=== PATIENT | male | born 1960 | race Caucasian/White ===

== ENCOUNTER 2020-08-13 22:23 | Observation (INO) | payer OTHER, SELFPAY ==
[2020-08-13 22:24] VITALS: BP 148/90; PULSE 94; RESP 18; TEMP 36.4; O2SAT 97; BMI 27.3
--- NOTE | 2020-08-13 22:37 | ED.VISSUMM ---
- ER Visit Summary Date of Service: 08/13/20 Chief Complaint: Abdominal pain History of Present Illness: The patient is a 60 M who presents with abdominal pain that began today. Patient states the pain is sharp. Patient states the pain is over the lower abdomen. Patient states the pain has been waxing and waning throughout the day. Patient states nothing makes it better or worse. Patient admits to some nausea and vomiting. Patient had 2 episodes of emesis today. Patient states his emesis is stomach contents. Patient denies any hematemesis or coffee-ground emesis. Patient admits to some loose stools. Patient denies any melena or hematochezia. Patient admits to some dysuria but denies any hematuria. Physical Examination: Vital signs are stable. Patient is afebrile. Patient is in no acute distress. Oral mucosa is pink and moist. Neck is supple. Trachea is midline. There is no JVD. Heart was regular rate and rhythm. Lungs are clear and equal bilaterally. Abdomen is soft. Bowel sounds are normal. There is mild lower abdominal tenderness. There is no rebound or guarding noted. Cranial nerves II through XII are intact. There are no focal motor or sensory deficits noted. Test Results: CBC shows a mild leukocytosis of 13.2. Hemoglobin was 17.3. Comprehensive metabolic profile showed a slightly elevated bilirubin of 2.4. Glucose was slightly elevated at 169. Urinalysis does not show any evidence of urinary tract infection. CT scan of the abdomen and pelvis was obtained. There is dilated fluid-filled appendix with periappendiceal fat stranding changes. These were interpreted by the radiologist and reviewed by myself. Emergency Department Course and Treatment: Patient was given morphine and Zofran initially. Patient was given IV fluids. Patient was given a repeat dose of morphine. Patient was advised of his findings. Case was discussed with Dr. Kapoor. She will admit the patient to her service. Patient understood and was agreeable with the plan. All questions were answered. Disposition: Admit to hospital Impression: Acute appendicitis This note was generated with [employer] dictation software. It may contain incorrect words, spelling, and punctuation that were not noted in review of the chart prior to signing ED Disposition - Plan for ED Patient: Disposition: Acute Care Hospital [facility] Diagnosis: Acute appendicitis Referrals: NOT,DEFINED [NON-STAFF] -
[2020-08-13 22:45] LABS: Absolute Lymphocyte Count 0.97 X10^3/uL (0.83-4.51); Absolute Neutrophil Count 11.1 X10^3/uL (2.0-7.7); Basophil# 0.01 X10^3/uL; Basophil% 0.1 % (0-1); Eosinophil# 0.01 X10^3/uL; Eosinophils% 0.1 % (0-5); Hematocrit 51.1 % (40-54); Hemoglobin 17.3 g/dL (13.0-16.5); Lymphocyte # 0.97 X10^3/ul (4.0); Lymphocyte % 7.4 % (19-41); Mean Corp Hgb Conc 33.9 g/dL (32-36); Mean Corpuscular Hgb 31.6 pg (27.0-32.0); Mean Corpuscular Volume 93.2 fL (80-94); Mean Platelet Vol. 8.7 fl (6.2-12.0); Monocyte# 0.98 X10^3/uL; Monocyte% 7.5 % (0-10); NRBC Flagged by Analyzer 0 % (0-5); Neutrophil # 11.13 X10^3/uL (2.7-7.7); Neutrophil % 84.5 % (47-70); Platelet Count 352 K/mm3 (150-450); RBC Distribution Width CV 12.9 % (11.6-14.6); RBC Distribution Width SD 43.8 fl (35.1-43.9); Red Blood Count 5.48 M/mm3 (4.6-6.2); White Blood Count 13.2 K/mm3 (4.4-11.0)
[2020-08-13] MEDS: 0.9% Normal Saline 1,000 ML 1000 ML IV (22:48)
[2020-08-13] MEDS: Morphine 4 MG/ML Syringe IV (22:48)
[2020-08-13] MEDS: Ondansetron 4 MG/2 ML Vial IV (22:48)
[2020-08-13 23:06] LABS: ALB/GLOB Ratio 0.9 RATIO (0.9-2.4); AST(SGOT) 18 U/L (15-37); Alanine Aminotransfer ALT/SGPT 30 U/L (16-61); Albumin, Serum 4.1 g/dL (3.2-5.0); Alkaline Phosphatase 78 U/L (45-117); Anion Gap 7 (5-15); BUN 14 mg/dL (7-18); BUN/Creat Ratio 12.6 RATIO (10-20); Calcium,Total 9.7 mg/dL (8.5-10.1); Chloride 103 mmol/L (98-107); Creatinine, Serum 1.11 mg/dL (0.70-1.30); EST Glomerular Filtration Rate 72 mL/min (>60); Est Glom Filt Rate - Afr Amer 87 mL/min (>60); Estimated Creatinine Clearance 69.32 ml/min; Globulin 4.4 g/dL (2.2-4.2); Glucose 169 mg/dL (74-106); Lipase 84 U/L (73-393); Protein, Total 8.5 g/dL (6.4-8.2); Sodium Level 136 mmol/L (136-145)
[2020-08-13 23:39] LABS: Squamous Epithelial Cells - UA 0 SEEN /hpf (0-5)
[2020-08-13 23:44] LABS: Color, Urine Yellow (Yellow); Glucose, Dipstick Normal (Normal); Ketone-Dipstick 50 mg/dl (Negative); Leukocyte Esterase-Dipstick Negative /ul (Negative); Nitrite-Dipstick Negative (Negative); Occult Blood-Urine 10 /ul (Negative); Protein-Dipstick 30 mg/dl (Negative); Specific Gravity, Urine 1.025 (1.002-1.030); Urine Bilirubin Dipstick Negative (Negative); Urine Clarity Clear (Clear); Urine Urobilinogen Normal (Normal)
[2020-08-14] VITALS (12 sets, daily range): BP systolic 108–157; BP diastolic 51–81; PULSE 80–102; RESP 16–18; TEMP 36.4–37.7; O2SAT 92–97; BMI 28.5; BMI 28.6
--- NOTE | 2020-08-14 | APP_PTH ---
PATIENT: ZIYAD GAMA LOC: MS3 U#:[id number] AGE/SX: 60/M [place] [facility] [place]: Dr. Natalie Kapoor MD : 1960 BED: 1 DIS: 08/15/2020 SPEC #: [id number] RECD: 08/14/20 10:31 STATUS: ESME RESherie #: [id number] GRACIELA: 08/14/20 00:[address]: Natalie Kapoor DEPT: SURGICAL PATHOLOGY RECD BY: Pranay Ryan ENTERED: 08/15/20 08:13 SP TYPE: APPENDIX OT DR: Rosetta Primary Care Phys Tissues: Appendix, NOS Procedures: Surgery Specimen Level III HEADER OPERATION: Laparoscopic appendectomy PRE-OP DIAGNOSIS: Acute appendicitis TISSUE SUBMITTED: Appendix MICROSCOPIC DIAGNOSIS Appendix, appendectomy: Acute necrotizing appendicitis. Acute serositis. AM:kriss 08/16/20 MICROSCOPIC DESCRIPTION Slides are reviewed. GROSS DESCRIPTION Received in fixative is one container labeled with the patient's name and designated appendix. The specimen consists of an appendix measuring 5.5 cm in length and up to 0.7 cm in diameter. The attached periappendiceal adipose tissue measures up to 1.5 cm in width. The distal portion of the appendix shows a focal area suspicious for rupture. The lumen is filled with hemorrhagic material. No fecalith is identified. Slubber Operator sections are submitted in two cassettes. / JOSE M:kriss 08/15/20 TC:2 CPT: 91321
[2020-08-14 00:02] LABS: Mucous, Urine 2+ /hpf (<or=2+); White Blood Cells 0-5 SEEN /hpf (0-5)
[2020-08-14 00:03] LABS: Bacteria 1+ /hpf (None Seen); Red Blood Cells-Urine 0-5 SEEN /hpf (0-5)
[2020-08-14 00:04] LABS: Hyaline Cast 0-5 SEEN /lpf (0-5)
--- NOTE | 2020-08-14 01:15 | CT_ITS ---
STUDY: CT ABDOMEN AND PELVIS WITH CONTRAST REASON FOR EXAM: Male, 60 years old. LOW ABDOMINAL PAIN WITH VOMITING RADIATION DOSAGE (If Supplied By Facility): CTDIvol = ( 9.87 ) mGy, DLP = ( 995.35 ) mGycm TECHNIQUE: Transaxial images were obtained from the dome of the diaphragm to the symphysis pubis with oral contrast. Oral and amp; IV Gastrografin and amp; 100mL Isovue-370 was administered. Sagittal and coronal images were reconstructed. Individualized dose optimization techniques were used for this CT. COMPARISON: None. FINDINGS: The visualized lung bases demonstrate probable bibasilar lung atelectasis.. The visualized portions of the heart are within normal limits. Normal liver. Normal gallbladder and extrahepatic biliary system. Normal spleen. Normal pancreas. Normal bilateral adrenal glands. Normal right kidney. Normal left kidney. Normal visualized stomach. Normal small intestine. Normal colon. The appendix is visualized and is dilated with periappendiceal fat stranding. Normal abdominal aorta. Normal inferior vena cava. Normal retroperitoneum. Normal urinary bladder. Normal abdominal wall. There is chronic right L5 pars defect. Degenerative disc changes at L5-S1. CT/Abdomen/Pelvis WITH Contrast IMPRESSION: Dilated fluid-filled appendix with periappendiceal fat stranding changes. The appendix measures up to 1.3 cm in diameter. Findings consistent with acute appendicitis. Questionable focus of microperforation with small gas density which appears extraluminal, series 2 image 88. No organized fluid collections. Electronically Signed: Wilbertshelbydaysi Calderón, at 1:40 EDT Tel , Service support ,
[2020-08-14] MEDS: Morphine 4 MG/ML Syringe IV (02:04)
--- NOTE | 2020-08-14 02:06 | ED.RN ---
CALLED AND LET ITA KNOW THE STATUS AND THAT PT WAS GOING TO THE FLOOR AND WHAT ROOM HE WAS GOING TO.
[2020-08-14] MEDS: 0.9% Saline Lock 10 ML Syringe IV (04:24)
[2020-08-14] MEDS: Lactated Ringers 1,000 ML 100 ML IV ×4 (04:24→22:40)
--- NOTE | 2020-08-14 07:31 | PCM.HP.BLA ---
History and Physical Date of Admission: 08/14/20 Chief Complaint: abdominal pain History of Present Illness: 60 y/o WM presents with abdominal pain. He notes sudden onset of sharp pain over the lower abdomen beginning yesterday morning. Has had nausea and emesis. Evaluation at [facility] ED - WBC 13.2k with left shift of differential, afebrile CT scan - IMPRESSION: Dilated fluid-filled appendix with periappendiceal fat stranding changes. The appendix measures up to 1.3 cm in diameter. Findings consistent with acute appendicitis. Questionable focus of microperforation with small gas density which appears extraluminal, series 2 image 88. No organized fluid collections. Past Medical History: denies major medical illnesses Past Surgical History: denies Medications: denies taking chronic medications Allergies: Has no known drug allergies Social history: TOB use denies Review of Systems: General - denies fevers, denies weight loss, denies anorexia Cardiovascular denies chest pain, denies history of heart attack Pulmonary denies shortness of breath, denies coughing up blood Gastrointestinal as per HPI, denies blood in stools, denies swallowing problems Neurological denies numbness/weakness of extremities, denies seizures, denies history of stroke Genitourinary denies burning with urination, denies blood in urine Hematological denies spontaneous/prolonged bleeding Skin denies open non healing wounds Musculoskeletal denies history of fractures Endocrine denies diabetes, denies thyroid prblems Psychological denies hallucinations Physical examination: Vital signs Temp 97.5F BP 157/63 HR 102 RR 18 General WD/WN WM in no apparent distress, alert and oriented, not septic appearing HEENT Normocephalic. EOM intact with sclera clear. Neck is supple with no jugular venous distention noted. Trachea is midline. No masses noted. Lungs normal breath sounds. No rales/rhonchi/wheezing noted. No labored breathing noted, such as retractions. No cough heard. Heart normal heart sounds, regular Abdomen soft but tender in the right lower quadrant of the abdomen with rebound tenderness Extremities no calf tenderness noted. No pitting edema noted. Genitourinary/Rectal deferred Skin normal skin integrity. Neurological non fcal. Psychological normal affect, patient is calm and appropriate Impression: appendicitis - possible perforation Discussion/Plan: I have discussed the above with the patient. I have offered the patient the procedure of laparoscopic appendectomy. I have explained the procedure to the patient. I have counseled the patient as to the risks of the procedure, including but not limited to: infection, bleeding, injury to any blood vessels/nerves, scar tissue, injury to any intrabdominal organs, injury to kidney/ureters, injury to bowel/bladder,intraabdominal abscess/bleeding, hernias at incisional sites, wound infections, possible open procedure, complications of anesthesia, postoperative pneumonia/cardiac problems/blood clots etc. the patient understands. The patient was offered a surgery/procedure. The provider and patient have discussed in detail the risk of exposure to and/or potential harm posed by the COVID-19 virus with having a surgery/procedure at this time versus the risk of delaying the surgery/procedure. It is not possible to know either the risk of delaying the surgery or procedure or chance of getting an infection with perfect accuracy, but a joint decision was made between the patient and the provider to proceed at this time with the scheduled surgery/procedure. He wishes to proceed. I have answered all questions to the patient?s satisfaction and the patient has no further questions.
[2020-08-14] MEDS: Bupiv/Epi 0.25% 30 ML Vial (09:55)
--- NOTE | 2020-08-14 10:08 | OP.PCM_ITS ---
Report of Operation Date of Procedure: 08/14/20 Pre-Operative Diagnosis: acute appendicitis Post-Operative Diagnosis: acute perforated appendicitis with localized fecal peritonitis Surgery/Procedure Performed:: laparoscopic appendectomy Description of Surgical Findings:: perforated appendicitis with fecal peritonitis Type of Anesthesia:: General Anesthesiologist: Junie Denise Specimen's removed: appendix Estimated Blood Loss (mL): < 10 ml Fluids Replaced: 1000 ml RL Description of Procedure: After informed consent was obtained, the patient was brought into the Operating Room. Appropriate time out protocol was followed. The patient was placed in the supine position on the operating table. The patient was then placed under general anesthesia by the anesthesia provider. The patient?s abdomen was then prepped with a sterile surgical skin preparation and sterile surgical drapes were placed. The infraumbilical skin fold was grasped with penetrating towel clamps and the skin and subcutaneous tissues were infiltrated with 0.25% marcaine with epinephrine. A incision was then made with a 15 blade scalpel. A Veress needle was then inserted into the intraabdominal cavity and checked to be in the proper position with a normal saline drop test. A CO2 pneumoperitoneum was then created. Once this was achieved, the Veress needle was removed and an 11 mm trocar was placed in its stead. A 10 mm laparoscope was then inserted into the trocar. Careful examination of the intraabdominal contents was then done. There was no evidence of injury to any internal organs from placement of the Veress needle or the trocar. Under direct visualization, a 12mm suprapubic trocar and a 5mm left lower quadrant trocar was then placed into the intraabdominal cavity. The skin and subcutaneous tissues at these sites were first infiltrated with 0.25% marcaine with epinephrine. Attention was then directed to the right lower quadrant. The appendix was not initially visualized. There was dense inflammation in the area. Dissection was done bluntly to identify for the appendix. The inflamed omentum was taken down that was inflamed adherent to the area of the appendix. After some time with blunt dissection to separate out the tissues, the base of the appendix was visualized. The mesentery around the base had a window created by using the Harmonic scalpel. The linear gastrointestinal stapling device was then brought in via the 12 mm suprapubic port. The stapling device was fired, thus stapling across the base of the appendix and transecting it simultaneously. The appendiceal tip could not be visualized. It was surrounded by inflammatory tissue, however fecal contents were noted surrounding this area. The mesentery of the appendix was using the Harmonic scalpel and hemostasis was controlled with the Harmonic scalpel. The appendiceal mass was also densely a dherent to the right lower abdominal wall. Once it was freed from the surrounding tissues, which took some time, the appendiceal mass was then placed in an Endobag and brought out via the suprapubic trocar. There was cloudy/purulent peritoneal fluid noted. Cultures were taken of this. The pelvic cavity was vigorously irrigated with normal saline and all irrigant was aspirated out. The appendiceal stump was carefully examined. There was no evidence of any active bleeding or fecal leakage from the stump. The surrounding tissues were also examined and there was no evidence of any active bleeding or fecal/bile leakage. A 15 Fr passive drain was placed in the intraabdominal cavity, directed to the pelvis but looped in the right lower quadrant and brought out via the suprapubic trocar site. The intraabdominal cavity was examined and there was no evidence of any further inflammation or tissue abnormality. The CO2 pneumoperitoneum was released and all trocars were removed intact. The suprapubic fascia was reapproximated with a figure-of-8 vicryl suture carefully around the drain. The catheter drain was sutured to the skin using nylon suture. The periumbilical fascia was reapproximated using a figure of 8 vicryl suture. All skin incisions were reapproximated with monocryl suture. Cavilon and steristrips were applied to reinforce skin closure and proper sterile dressings were placed. Sponge, needle, and instrument count were verified and correct at the time of skin closure. The patient was then extubated and brought to the Recovery Room in stable condition. - Complications none noted - Admit VTE Documentation VTE Present on Admission: Yes VTE Mechan Device Prophylaxis: SCD's
[2020-08-14] MEDS: Ibuprofen 600 MG Tablet PO (18:30)
[2020-08-15 01:50] VITALS: BP 111/67; PULSE 61; RESP 16; TEMP 37.1; O2SAT 94
[2020-08-15] MEDS: Ibuprofen 600 MG Tablet PO (05:24)
--- NOTE | 2020-08-15 07:31 | DCINST_ITS ---
Discharge Diet: No Restrictions - drink plenty of fluids, avoid carbonated beverages for a couple of days as this may make you feel bloated and thus uncomfortable after abdominal surgery Discharge Activity: Return to Normal Activity, May not drive while taking narcotic pain medications. Lifting Restrictions: no lifting greater than 10 pounds for 2 weeks Call your doctor if your incision/area has: Continuous Slow Oozing, Foul Smelling Discharge Call your doctor if you observe: Fever of 101 or Higher Additional Instructions: Recommended pain control regimen - May take 600 mg ibuprofen (Motrin) and then in 3-4 hours, may take 650 mg acetaminophen (Tylenol), then in 3-4 hours may take 600 mg ibuprofen, then in 3- 4 hours may take 650 mg acetaminophen and so on for 2-3 days May take narcotic pain medication for pain that is not controlled by above and at night for comfort through the night Leave dressings in place Sponge bathe only Empty bulb drain as instructed and reconstitute suction at least once a day Please take your temperature once a day and record this Medications to take at Discharge Amoxicillin/Potassium Clav [Augmentin 875-125 Tablet] 1 ea PO BID 7 Days #14 tab 08/15/20 Hydrocodone Bitart/Apap 5-325 [[place] 5MG-325MG] 1 tab PO Q8H PRN PRN 5 Days #15 tab 08/15/20 Allergies/Adverse Reactions: Allergies No Known Allergies Allergy (Verified 08/13/20 22:26) The following prescriptions were given: Amoxicillin/Potassium Clav [Augmentin 875-125 Tablet] 1 ea PO BID 7 Days #14 tab Transmission Status: Pending to [id number] Hydrocodone Bitart/Apap 5-325 [[place] 5MG-325MG] 1 tab PO Q8H PRN PRN 5 Days #15 tab PRN Reason: Pain Score 4-10 Transmission Status: Sent to [id number] Primary Care Physician: NOT,DEFINED [NON-STAFF] - Test Results: Test results from this visit will be discussed in further detail at your follow- up appointment, if applicable. Please Follow Up With: Natalie Kapoor MD - call When: to be seen on August 19, please call for time, thank you
[2020-08-15 09:20] VITALS: BP 122/70; PULSE 76; RESP 18; TEMP 36.7; O2SAT 93
--- NOTE | 2020-08-15 10:10 | CASEMGMT ---
RN ELSY Face to Face with patient for initial transition planning/care coordination assessment. RN CM introduced self and role at [facility]. Patient sitting in chair, alert and oriented. Patient willing to participate in assessment and is able to answer all questions appropriately. Care providers, pharmacy, and demographics verified. Patient wishes to discharge home, denies need for home health at this time. Patient states he has no further needs or concerns at this time. CM to follow for discharge planning needs that may arise. PCP: No PCP, ANNIA CHIN provided list of local PCPs for patient to follow-up Specialists: surgeon Virgil Kapoor [facility]acy: [facility] Insurance: [employer] Prescription Benefit: yes Living Will/HPOA: none LNOK: daughter Living Arrangements: Patient lives with daughter and girlfriend in a 2 story home with access to bed and bath on first floor if needed. Patient states he is independent at home and able to ambulate stairs. Transportation: self, girlfriend DME/HHC: Patient denies DME or previous HHC. Patient voices no needs at discharge. Disposition Plan: Patient to discharge home with family support and follow-up plans in place. Qiana BAILEY, RN, CM
== END 2020-08-15 11:08 | disposition home or self-care (01) ==
LOC: ED 08-14 01:37 → SDC 08-14 01:45 → MS3 08-14 04:44 → SDC 08-14 21:51 → MS3 08-15 10:10
PROVIDERS: Admitting Provider Surgery; Emergency Provider Emergency Medicine; Visit Provider Surgery
PROC: 0DTJ4ZZ Resection of Appendix, Percutaneous Endoscopic Approach (ICD-10-PCS; CPT 44970; principal; 2020-08-14 07:30)
DX: K35.32 Acute appendicitis with perforation, localized peritonitis, and gangrene, without abscess (principal)
CPT/HCPCS: 00840; 44970; 74177; 80053; 81001; 83690; 85025; 87070; 87075; 87077; 87186; 87205; 87426; 88304; 96361; 96365; 96366; 96375; 96376; 99218; 99251; 99285; J7030; J7040; J7050; J7120; Q9967; A4216; G0378; G0463; J2405

== ENCOUNTER 2024-01-25 05:45 | Emergency (ER) | payer OTHER, SELFPAY ==
[2024-01-25 05:49] VITALS: BP 153/93; PULSE 89; RESP 18; TEMP 36.7; O2SAT 98; BMI 27.3
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
[2024-01-25 06:07] VITALS: BP 168/90; PULSE 82; RESP 18; TEMP 36.7; O2SAT 99
== END 2024-01-25 06:24 | disposition home or self-care (01) ==
LOC: ED 06:23
PROVIDERS: Emergency Provider Emergency Medicine; PCP Family Medicine; Visit Provider Emergency Medicine
DX: T59.811A Toxic effect of smoke, accidental (unintentional), initial encounter (principal); J70.5 Respiratory conditions due to smoke inhalation
CPT/HCPCS: 99282